=== PATIENT | female | born 1950 | race American Indian/Alaskan Native ===

== ENCOUNTER 2018-02-21 09:02 | Outpatient (CLI) | payer MEDICARE, OTHER ==
[2018-02-21 10:11] LABS: Blood Urea Nitrogen 19 mg/dL (7-17)
--- NOTE | 2018-02-21 14:31 | Cat Scan Report ---
CT ABDOMEN PELVIS WITH CONTRAST: HISTORY: Abdominal pain, ventral hernia. COMPARISON: none. TECHNIQUE: Helical CT in 1.25mm intervals following IV contrast. Sagittal and coronal reconstructions. FINDINGS: Lung bases: Small to medium pericardial effusion is identified. No obvious pericardial nodularity or calcifications. Heart size is normal. Trace pleural effusions are also noted bilaterally. Liver: Normal. Biliary system: Cholecystectomy. No biliary dilatation. Pancreas: Normal. Spleen: Normal. Kidneys/ureters/bladder: Normal. Adrenal glands: Normal. Aorta: Mild scattered calcifications. No aneurysm or dissection. Moderate vascular calcifications are noted throughout the celiac axis, SMA, GLORIA, bilateral iliac systems and bilateral renal arteries. Intestines: Normal. Appendix: Normal. Pelvic viscera: Hysterectomy changes are suspected. No adnexal cyst or mass. Ascites: None. Adenopathy: None. Musculoskeletal: Borderline osteopenia is suspected. Moderate thoracolumbar spondylosis is identified. 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 No evidence for acute fracture or suspicious bony lesion. No convincing ventral wall hernia is identified. There does appear to be mild laxity of the anterior abdominal wall in the umbilical region but no focal defect is detected. IMPRESSION: No ventral wall hernia is appreciated. See above. Pericardial effusion of uncertain etiology. Trace pleural effusions. Diffuse atherosclerotic disease in the arterial structures. Cholecystectomy and hysterectomy. 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
== END 2018-02-21 09:03 | disposition home or self-care (01) ==
LOC: CT 09:02
PROVIDERS: ATTEND Family Medicine
DX: I31.3 Pericardial effusion (noninflammatory) (principal); I25.10 Atherosclerotic heart disease of native coronary artery without angina pectoris; M21.951 Unspecified acquired deformity of right thigh
CPT/HCPCS: 36415; 74177; 82565; 84520; Q9967